=== PATIENT | female | born 1940 | race African-American/Black ===

== ENCOUNTER → 2016-04-03 | Outpatient (CLI) | payer OTHER | LOC: PCVCCLINIC 10:00 | PROVIDERS: ATTEND Internal Medicine Cardiovascular Disease | DX: I48.91 Unspecified atrial fibrillation (principal) | CPT/HCPCS: 85610 ==

== ENCOUNTER → 2016-04-12 | Outpatient (CLI) | payer MEDICARE, OTHER | END | disposition home or self-care (01) | LOC: PCVCCLINIC 11:50 | PROVIDERS: ATTEND Internal Medicine Cardiovascular Disease | DX: I48.91 Unspecified atrial fibrillation (principal); I10 Essential (primary) hypertension; I35.1 Nonrheumatic aortic (valve) insufficiency | CPT/HCPCS: 93005; G0463 ==

== ENCOUNTER → 2016-05-26 | Outpatient (CLI) | payer MEDICARE | END | disposition home or self-care (01) | LOC: PCVCCLINIC 10:56 | PROVIDERS: ATTEND Internal Medicine Cardiovascular Disease | DX: I48.91 Unspecified atrial fibrillation (principal) | CPT/HCPCS: 85610; G0463 ==

== ENCOUNTER → 2016-06-30 | Outpatient (CLI) | payer MEDICARE | END | disposition home or self-care (01) | LOC: PCVCCLINIC 10:34 | PROVIDERS: ATTEND Internal Medicine Cardiovascular Disease | DX: I48.91 Unspecified atrial fibrillation (principal) | CPT/HCPCS: 85610; G0463 ==

== ENCOUNTER → 2016-07-28 | Outpatient (CLI) | payer MEDICARE | END | disposition home or self-care (01) | LOC: PCVCCLINIC 12:41 | PROVIDERS: ATTEND Internal Medicine Cardiovascular Disease | DX: I48.91 Unspecified atrial fibrillation (principal) | CPT/HCPCS: 85610 ==

== ENCOUNTER → 2016-08-28 | Outpatient (CLI) | payer MEDICARE | END | disposition home or self-care (01) | LOC: PCVCCLINIC 10:11 | PROVIDERS: ATTEND Internal Medicine Cardiovascular Disease | DX: I48.91 Unspecified atrial fibrillation (principal); Z79.01 Long term (current) use of anticoagulants | CPT/HCPCS: 85610 ==

== ENCOUNTER → 2016-10-10 | Outpatient (CLI) | payer MEDICARE ==
--- NOTE | 2016-10-10 12:30 | PCVCIMAG ---
APPROVED REPORT Study performed: 10/10/2016 10:59:21 EXAM: Comprehensive 2D, Doppler, and color-flow Echocardiogram Patient Location: Echo lab Status: routine Other Information Study Quality: Adequate Indications Aortic Valve Disease Atrial Fibrillation dilated ascending aorta, aortic insuffeciency 2D Dimensions LVEF(%): 69.73 (>50%) IVSd: 10.20 (7-11mm)LVOT Diam: 19.12 (18-24mm) LVDd: 43.79 mm PWd: 8.89 (7-11mm)Ascending Ao: 45.62 (22-36mm) LVDs: 26.69 (25-40mm) Left Atrium: 28.75 (27-40mm) Aortic Root: 25.76 mm LV Single Plane 4CH: 60.75 % LV Single Plane 2CH: 66.89 %Mota's LVEF: 63.82 % Biplane EF: 63.0 % Volumes Left Atrial Volume (Systole) Single Plane 4CH: 36.52 mLSingle Plane 2CH: 33.22 mL LA ESV Index: 24.00 mL/m2 Aortic Valve AoV Peak Fady.: 1.70 m/s AO Peak Gr.: 11.53 mmHgLVOT Max P.98 mmHg LVOT Mean P.09 mmHg LVOT Max V: 1.23 m/s LVOT Mean V: 0.82 m/s LVOT V1 VTI: 26.26 cm KATY Vmax: 2.07 cm2 AI Vmax: 4.58 m/sSV (LVOT): 75.39 mL AI [place]: 1.81 m/s2 AI PHT: 735.21 ms Mitral Valve E/A Ratio: 0.9 MV Decel. Time: 249.62 ms MV E Max Fady.: 0.45 m/s MV A Fady.: 0.52 m/s IVRT: 83.04 ms Pulmonary Valve PV Peak Fady.: 0.87 m/sPV Peak Gr.: 3.03 mmHg Pulmonary Vein P Vein S: 0.61 m/sP Vein A: 0.27 m/s P Vein D: 0.57 m/sP Vein A Dur.: 83.0 msec P Vein S/D Ratio: 1.07 Tricuspid Valve TR Peak Fady.: 2.37 m/s TR Peak Gr.: 22.39 mmHg TV Vmax: 0.52 m/sPA Pressure: 29.00 mmHg Left Ventricle The left ventricle is normal size. There is normal LV segmental wall motion. There is normal left ventricular wall thickness. The left ventricular systolic function is normal. The left ventricular ejection fraction is within the normal range. LVEF is 55-60%. Grade I - abnormal relaxation pattern. Right Ventricle The right ventricle is normal size. The right ventricular systolic function is normal. Atria The left atrium size is normal. The right atrium size is normal. Aortic Valve Aortic valve is trileaflet. Aortic valve leaflets are sclerotic but open well. Mild to moderate aortic regurgitation. There is no aortic valvular stenosis. Mitral Valve The mitral valve is normal in structure. Trace to mild mitral regurgitation. No evidence of mitral valve stenosis. Tricuspid Valve Mild tricuspid regurgitation with a PA pressure of 29mmHg.. Pulmonic Valve The pulmonary valve is normal in structure. Mild to moderate pulmonic regurgitation. Great Vessels The ascending aorta is dilated at 4.6cm. Pericardium There is no pericardial effusion. <Conclusion> The left ventricle is normal size. The left ventricular systolic function is normal. Grade I - abnormal relaxation pattern. The right ventricle is normal size. The left atrium size is normal. The right atrium size is normal. Mild to moderate aortic regurgitation. Trace to mild mitral regurgitation. The ascending aorta is dilated at 4.6cm.
== END | disposition home or self-care (01) ==
LOC: PCVCIMAG 10:55
PROVIDERS: ATTEND Internal Medicine Cardiovascular Disease
DX: I08.8 Other rheumatic multiple valve diseases (principal); I48.91 Unspecified atrial fibrillation; I71.2 Thoracic aortic aneurysm, without rupture; I10 Essential (primary) hypertension; Z88.8 Allergy status to other drugs, medicaments and biological substances; Z79.01 Long term (current) use of anticoagulants
CPT/HCPCS: 93005; 93306; G0463

== ENCOUNTER → 2017-07-17 | Outpatient (CLI) | payer MEDICARE | END | disposition home or self-care (01) | LOC: PCVCIMAG 10:14 | DX: I08.3 Combined rheumatic disorders of mitral, aortic and tricuspid valves (principal); M79.605 Pain in left leg; M79.604 Pain in right leg; M79.89 Other specified soft tissue disorders; I48.0 Paroxysmal atrial fibrillation; I71.2 Thoracic aortic aneurysm, without rupture; I10 Essential (primary) hypertension; R60.9 Edema, unspecified; Z79.01 Long term (current) use of anticoagulants | CPT/HCPCS: 85610; 93005; 93306; 93970; G0463 ==

== ENCOUNTER → 2018-01-18 | Outpatient (CLI) | payer MEDICARE | END | disposition home or self-care (01) | LOC: PCVCCLINIC 14:55 | PROVIDERS: ATTEND Internal Medicine Cardiovascular Disease | DX: I48.91 Unspecified atrial fibrillation (principal); I35.1 Nonrheumatic aortic (valve) insufficiency; I10 Essential (primary) hypertension; R60.9 Edema, unspecified; Z79.01 Long term (current) use of anticoagulants | CPT/HCPCS: 93005; G0463 ==

== ENCOUNTER → 2018-07-23 | Outpatient (CLI) | payer MEDICARE ==
--- NOTE | 2018-07-23 13:04 | PCVCIMAG ---
APPROVED REPORT Study performed: 07/23/2018 10:38:41 EXAM: Comprehensive 2D, Doppler, and color-flow Echocardiogram Patient Location: Echo lab Room #: 2Status: routine BSA: 1.64 HR: 68 bpmBP: 146/78 mmHg Rhythm: NSR Other Information Study Quality: Good Risk Factors: Cardiac Risk Factors: HTN Indications Aortic Valve Disease Atrial Fibrillation Hypertension/HDD 2D Dimensions IVSd: 9.53 (7-11mm)LVOT Diam: 21.27 (18-24mm) LVDd: 45.77 mm PWd: 11.45 (7-11mm)Ascending Ao: 46.67 (22-36mm) LVDs: 29.30 (25-40mm) Left Atrium: 26.69 (27-40mm) Aortic Root: 31.61 mm LV Single Plane 4CH: 61.18 % LV Single Plane 2CH: 68.09 % Biplane EF: 64.4 % Volumes Left Atrial Volume (Systole) Single Plane 4CH: 62.81 mLSingle Plane 2CH: 44.18 mL Biplane LA Volume: 55.00 mLLA ESV Index: 34.00 mL/m2 Aortic Valve AoV Peak Fady.: 1.80 m/s AO Peak Gr.: 13.23 mmHgLVOT Max P.19 mmHg AO Mean Gr.: 6.75 mmHgLVOT Mean P.91 mmHg AO V2 Mean: 1.22 m/sLVOT Max V: 1.24 m/s AO V2 VTI: 41.02 cmLVOT Mean V: 0.94 m/s KATY (VTI): 2.51 [id number] V1 VTI: 28.94 cm KATY Vmax: 2.45 cm2 AI Vmax: 4.91 m/sSV (LVOT): 102.80 mL AI [place]: 2.21 m/s2 AI PHT: 659.12 ms Mitral Valve MV Peak Gr.: 2.88 mmHg MV Mean Gr.: 1.17 mmHgE/A Ratio: 1.1 MV Decel. Time: 207.72 ms MV E Max Fady.: 0.87 m/s MV A Fady.: 0.79 m/s MV Max Fady.: 0.85 m/s MV Mean Fady.: 0.50 m/s MV VTI: 228.27 mm MVA VTI: 450.33 mm2 Pulmonary Valve PV Peak Fady.: 0.86 m/sPV Peak Gr.: 2.97 mmHg Pulmonary Vein P Vein S: 0.47 m/sP Vein A: 0.34 m/s P Vein D: 0.57 m/sP Vein A Dur.: 124.6 msec P Vein S/D Ratio: 0.82 Tricuspid Valve TR Peak Fady.: 2.67 m/s TR Peak Gr.: 28.45 mmHg TV Vmax: 0.59 m/sPA Pressure: 35.00 mmHg Left Ventricle The left ventricle is normal size. There is normal LV segmental wall motion. Borderline concentric left ventricular hypertrophy. Left ventricular systolic function is normal. The left ventricular ejection fraction is within the normal range. LVEF is 60-65%. Right Ventricle The right ventricle is normal size. The right ventricular systolic function is normal. Atria The left atrium size is normal. The right atrium size is normal. Aortic Valve Aortic valve is trileaflet. The aortic valve is normal in structure. Moderate aortic regurgitation. There is no aortic valvular stenosis. Mitral Valve The mitral valve is normal in structure. There is no mitral valve regurgitation noted. No evidence of mitral valve stenosis. Tricuspid Valve The tricuspid valve is normal in structure. Mild tricuspid regurgitation with a PA pressure of 35 mmHg. Pulmonic Valve The pulmonary valve is normal in structure. Trace to mild pulmonic regurgitation. Great Vessels The aortic root is normal in size. Ascending aorta is dilated at 4.8 cm. There is a questionable flap, recommend further studies. IVC is normal in size and collapses >50% with inspiration. Pericardium There is no pericardial effusion. <Conclusion> The left ventricle is normal size. Borderline concentric left ventricular hypertrophy. Left ventricular systolic function is normal. The right ventricle is normal size. The left atrium size is normal. The right atrium size is normal. Moderate aortic regurgitation. There is no mitral valve regurgitation noted. Mild tricuspid regurgitation with a PA pressure of 35 mmHg. Ascending aorta is dilated at 4.8 cm. There is a questionable flap, recommend further studies. There is no pericardial effusion.
== END | disposition home or self-care (01) ==
LOC: PCVCIMAG 10:28
PROVIDERS: ATTEND Internal Medicine Cardiovascular Disease
DX: I48.91 Unspecified atrial fibrillation (principal); I71.2 Thoracic aortic aneurysm, without rupture; I35.9 Nonrheumatic aortic valve disorder, unspecified; M79.669 Pain in unspecified lower leg; M79.89 Other specified soft tissue disorders; I10 Essential (primary) hypertension; Z79.01 Long term (current) use of anticoagulants
CPT/HCPCS: 36415; 85610; 93005; 93306; G0463

== ENCOUNTER → 2018-12-20 | Outpatient (CLI) | payer MEDICARE | END | disposition home or self-care (01) | LOC: PCVCCLINIC 12:00 | PROVIDERS: ATTEND Internal Medicine Cardiovascular Disease | DX: I48.0 Paroxysmal atrial fibrillation (principal); I35.9 Nonrheumatic aortic valve disorder, unspecified; I71.2 Thoracic aortic aneurysm, without rupture; Z88.3 Allergy status to other anti-infective agents | CPT/HCPCS: 93005; G0463 ==